=== PATIENT | female | born 1980 | race Caucasian/White ===

== ENCOUNTER 2016-05-04 08:17 | Observation (INO) | payer SELFPAY ==
[~2016-05-04] VITALS: Ht 170.2 cm; Wt 102.0 kg
--- NOTE | ~2016-05-04 | OR ---
PATIENT'S NAME: JOSE JUAN MOYER [facility] AGE: 35 Y [address] ROOM: [id number] [place], [place] [address] LOCATION: [facility] ADMIT DATE: 05/04/2016 OR/Procedure Report DISCHARGE DATE: FAMILY PHYSICIAN: GERRY TENA APRN ATTENDING PHYSICIAN: Estuardo Calderon SURGEON: Jerome Rincon MD BRAKE LINING DRILLER: DATE OF PROCEDURE: 05/04/2016 The following lines were placed during the patient's lumbar diskectomy. HISTORY OF PRESENT ILLNESS: This is a 35-year-old female with a pretty much benign past medical history, who has a history of very difficult IV access. She was poked eight times prior to her anesthetic without success. We were finally able with ultrasonic guidance to get a 22-gauge in her right antecubital. This obviously was not going to work as her arms would be flexed during the case. PROCEDURE: So risks, benefits, and alternatives were discussed including central line placement while asleep, she agreed to that and we proceeded to OR #4, where she underwent uneventful induction of general anesthesia and intubation. With the airway controlled, path to the internal jugular vein was mapped using ultrasound. I gloved and gowned while her neck was prepped with chlorhexidine, maximal barrier was placed, internal jugular vein was cannulated the first pass with an 18-gauge needle. The wire threaded without difficulty or ectopy. A small skin bo was made and dilator passed and a 3 lumen 7-Polish 16 cm catheter was placed into its hub, that was then sutured in place with 2-0 silk. All lumens were flushed and mariano freely and the IV was used for the duration of the case. A 22-gauge in the antecubital was removed. The line itself was covered with sterile Tegaderm and tape. She was then rolled prone in the usual fashion, face in a foam block, with cut outs for the eyes, nose, and mouth. All pressure points were checked and padded repeatedly. Face was examined by mirror to make sure that it fit in the block well and no problems were had there. Thank you very much for allowing me to participate in Mrs. Moyer's care. If you have any questions regarding this central line, please do not hesitate to call. MD MAITE ARANA/sancho PATIENT'S NAME: JOSE JUAN MOYER [facility] AGE: 35 Y [address] ROOM: [place] [address] LOCATION: [facility] ADMIT DATE: 05/04/2016 OR/Procedure Report DISCHARGE DATE: FAMILY PHYSICIAN: GERRY TENA APRN ATTENDING PHYSICIAN: Estuardo Calderon /[id number] d: 05/05/16 0122 t: 05/14/16 1223, OPERATIVE SUMMARY
--- NOTE | ~2016-05-04 | DS ---
PATIENT'S NAME: JOSE JUAN MOYER [facility] AGE: 35 Y [address] ROOM: [id number] [place], [place] [address] LOCATION: [facility] ADMIT DATE: 05/05/2016 Discharge Summary DISCHARGE DATE: 05/07/2016 FAMILY PHYSICIAN: Fabby Abdalla APRN ATTENDING PHYSICIAN: Estuardo Calderon DISCHARGE SUMMARY: This 35-year-old lady presented with acute onset low back pain radiating down the left lower extremity. Investigations carried out, which was primarily just a CT scan of the lumbosacral spine, showed that she had a left L4-L5 disk herniation, which was thought to be the etiology of her symptoms. She was taken to the operating room on the day of admission and had a left L4-L5 microdiskectomy. Postoperatively, she initially was complaining of numbness in both feet, and I did explain to her in the hospital that I cannot see any reason why she should have numbness in the right foot because we did not do anything on the right side, and she also complained of severe pain, we tried the best we could to make her comfortable with pain medication. In addition, she did have initial urinary retention for which we initially started by just intermittent catheterization, and when these did not seem to resolve immediately, I initially thought of referring putting a catheter in and leaving the catheter in; however, fortunately, she started urinating and as of the last time that the residual was checked, she only had a residual of 100 mL. She, however, continued to complain of numbness and tingling in both feet, and I consequently went ahead and ordered an MRI of the lumbosacral spine, which she insisted on having, she and her boyfriend, and it did not show any recurrent disk, nor did it show any herniating disk on the right side, nor did it show any complications from the surgery. She did not have any more hematuria, and post-MRI, which was done on the 06 of May, she suddenly got better, and by the following day, she was not complaining neither of tingling in the middle feet nor was she complaining of pain down the leg, and she really did not have any significant back pain. She was consequently discharged from the hospital. She is to see her family doctor for removal of skin reddy a week from the time of discharge. She is to be seen in the clinic by me 3 weeks from the time of discharge. FINAL DIAGNOSIS: Left L4-L5 disk herniation. MD HI PAULINO/sancho /[id number] d: 05/11/16 0126 t: 05/20/16 1320, DISCHARGE SUMMARY
--- NOTE | ~2016-05-04 | OR ---
PATIENT'S NAME: JOSE JUAN MOYER [facility] AGE: 35 Y [address] ROOM: [address] [place], [place] [address] LOCATION: [facility] ADMIT DATE: 05/04/2016 OR/Procedure Report DISCHARGE DATE: FAMILY PHYSICIAN: GERRY TENA APRN ATTENDING PHYSICIAN: Estuardo Calderon SURGEON: Estuardo Calderon MD FOOD SUPERVISOR: DATE OF PROCEDURE: 05/04/2016 PREOPERATIVE DIAGNOSIS: Left L4-5 disk herniation. POSTOPERATIVE DIAGNOSIS: Left L4-5 disk herniation. OPERATION PROPOSED AND PERFORMED: 1. Left L4-5 microdiskectomy. 2. Microscope. 3. Fluoroscopy with interpretation. DESCRIPTION OF PROCEDURE: Under general anesthesia, the patient was positioned prone. The back was prepped and draped in the usual fashion. Midline linear incision was then carried out extending from the spinous processes of L4-L5. The fascia was incised to the left of the midline and Gerard self-retaining retractor was then used for retraction. This by the microscope was brought in. With the aid of the microscope, we drilled out the inferior part of the lamina of L4, excised the yellow ligament, this got us to the epidural space. We then removed the small part of the medial portion of the facet in order to be lateral to the dura and nerve root. We were able to identify the nerve root. Epidural vessels were cauterized using bipolar cautery and then on doing this we used the nerve root retractor to then retract the nerve roots towards the midline. This did expose the herniating disk at this level. There was a free fragment of disk material that had gone into the neural foramen, which we did not initially recognize or did not see. Apart from that, there was no other free fragment of disk material however. We made an incision into the annulus going to the disk space, shaved off the herniating disk, and as we did that, we were then able to finally retrieve the fragment of disk material that was into the neural foramen. This was done quite easily using the nerve hook and drilled the nerve hook around so as to retrieve the extruded disk. After this was done, we explored the canal again and there was no free fragment of disk material left. We extended our exploration into the neural foramen and this was quite clean. The wound was then thoroughly irrigated with bacitracin irrigation and closed in layers, first the fascia, then the subcutaneous tissue, and finally the skin. The patient tolerated the procedure well and was taken to the recovery room. PATIENT'S NAME: JOSE JUAN MOYER [facility] AGE: 35 Y [address] ROOM: [place] [address] LOCATION: [facility] ADMIT DATE: 05/04/2016 OR/Procedure Report DISCHARGE DATE: FAMILY PHYSICIAN: GERRY TENA APRN ATTENDING PHYSICIAN: Estuardo Calderon MD HI PAULINO/sancho /[id number] d: 05/05/161 t: 05/10/16 1432, OPERATIVE SUMMARY
[~2016-05-04 08:17] MED LIST: ATIVAN 1 MG1 MG PO; FLEXERIL10 MG PO; FLORAJEN3 CAPS460 MG PO; LEVOTHROID (SY50 MCG PO; MIRALAX17 GM PO; PERCOCET 5-3251 EACH PO; SPRINTEC 28 DA1 EACH PO; TYLENOL EXTRA500 MG PO
[2016-05-06 16:57] LABS: BILIRUBIN URINE NEGATIVE (NEGATIVE); BLOOD URINE NEGATIVE /UL (NEGATIVE); COLOR URINE YELLOW (YELLOW); GLUCOSE URINE NEGATIVE (NEGATIVE); KETONE URINE NEGATIVE (NEGATIVE); LEUKOCYTES URINE 100 /UL (NEGATIVE); NITRITE URINE NEGATIVE (NEGATIVE); PROTEIN URINE NEGATIVE (NEGATIVE); TURBIDITY URINE CLEAR (CLEAR); UROBILINOGEN URINE NORMAL (NORMAL)
[2016-05-06 17:11] LABS: BACTERIA URINE FEW (NEGATIVE)
[2016-05-06 17:12] LABS: HYALINE CAST URINE 0-2 #/LPF (NEGATIVE); MUCUS URINE 1+ (NEGATIVE); YEAST URINE FEW (NEGATIVE)
== END 2016-05-07 14:15 | disposition disaster alternative care site (69) ==
LOC: G3N 08:17 → GSDC 08:17 → G3N 14:29 → GSDC 05-05 15:00 → G3N 05-05 15:00 → GPOC 05-07 12:00 → G3N 05-07 14:15
PROVIDERS: ADMIT Neurological Surgery
PROC: 0ST20ZZ Resection of Lumbar Vertebral Disc, Open Approach (ICD-10-PCS; principal; 2016-05-04)
PROC: 01NB0ZZ Release Lumbar Nerve, Open Approach (ICD-10-PCS; 2016-05-04)
PROC: 05HN33Z Insertion of Infusion Device into Left Internal Jugular Vein, Percutaneous Approach (ICD-10-PCS; 2016-05-04)
PROC: B544ZZA Ultrasonography of Left Jugular Veins, Guidance (ICD-10-PCS; 2016-05-04)
DX: M51.26 Other intervertebral disc displacement, lumbar region (principal); E03.9 Hypothyroidism, unspecified; Z87.891 Personal history of nicotine dependence; F41.9 Anxiety disorder, unspecified; F32.9 Major depressive disorder, single episode, unspecified; K59.00 Constipation, unspecified; G47.33 Obstructive sleep apnea (adult) (pediatric); Z88.2 Allergy status to sulfonamides; Z88.8 Allergy status to other drugs, medicaments and biological substances; Z90.49 Acquired absence of other specified parts of digestive tract; Z98.890 Other specified postprocedural states; Z98.51 Tubal ligation status; Z79.899 Other long term (current) drug therapy
CPT/HCPCS: C1751; G0378; J0690; J1100; J1170; J1885; J2001; J2250; J2270; J2405; J3010; J3360; J7030; J7120

== ENCOUNTER → 2016-07-19 | Outpatient (CLI) | payer SELFPAY | END | disposition disaster alternative care site (69) | LOC: GRAD 15:26 | DX: R10.9 Unspecified abdominal pain (principal); N80.9 Endometriosis, unspecified; R10.2 Pelvic and perineal pain ==